=== PATIENT | male | born 1960 | race Caucasian/White ===

== ENCOUNTER 2022-01-22 19:31 | Emergency (ER) | payer OTHER ==
[~2022-01-22] VITALS: Ht 180.3 cm; Wt 93.0 kg
[~2022-01-22 19:31] MED LIST: AMLODIPINE BESY10 MG PO
[2022-01-22 21:41] VITALS: BP 138/95
== END 2022-01-22 21:47 | disposition home or self-care (01) ==
LOC: ER 20:01
DX: S40.011A Contusion of right shoulder, initial encounter (principal); S00.83XA Contusion of other part of head, initial encounter; R42 Dizziness and giddiness; W20.8XXA Other cause of strike by thrown, projected or falling object, initial encounter; Y99.0 Civilian activity done for income or pay; I10 Essential (primary) hypertension
CPT/HCPCS: 70450; 72125; 99283